=== PATIENT | male | born 1965 | race Caucasian/White ===

== ENCOUNTER → 2019-11-02 | Outpatient (CLI) | payer OTHER ==
--- NOTE | 2019-11-02 11:36 | RAD ---
3 views of the lumbar spine without comparison for right hip and low back pain, no trauma. FINDINGS: There is straightening of the normal lumbar lordosis. No fracture or acute osseous abnormality is identified. Intervertebral disc spaces are well-maintained at all levels. There is some facet arthrosis in the L4-5 and L5-S1 there is. There is aortoiliac atherosclerosis. Total left hip arthroplasty is noted. IMPRESSION: 1. No fracture or acute osseous abnormality. 2. Lower lumbar facet arthrosis, most notable at L5-S1. 3. Aortoiliac atherosclerosis. Electronically signed by: Norberto Coello MD (11/02/2019 11:33 AM) [facility]
--- NOTE | 2019-11-02 17:08 | RAD ---
2 view study of the right hip Clinical indications: Right hip and lower back pain. No known trauma. FINDINGS: No acute fracture or dislocation or lytic process is seen. No significant arthritic change is seen. IMPRESSION: No significant osseous abnormality of the right hip. Electronically signed by: Carlos Viveros MD (11/02/2019 5:05 PM) [facility]
== END | disposition home or self-care (01) ==
LOC: PMG 10:22
PROVIDERS: ATTEND Family Medicine
DX: M47.817 Spondylosis without myelopathy or radiculopathy, lumbosacral region (principal); I70.0 Atherosclerosis of aorta; Z96.642 Presence of left artificial hip joint
CPT/HCPCS: 72100; 73502

== ENCOUNTER 2020-09-07 05:15 | Emergency (ER) | payer OTHER ==
[~2020-09-07] VITALS: Ht 162.6 cm; Wt 75.0 kg
[2020-09-07] MEDS ORDERED: ONDANSETRON PF 4 MG/2 ML VIAL. IVP ONE (05:45)
[2020-09-07] MEDS ORDERED: IV NORMAL SALINE 1,000ML 1,000 ML IV ONE (05:45)
[2020-09-07 05:55] LABS: BASO % 0 % (0-3); EOS % 0 % (0-3); HEMOGLOBIN 15.3 g/dL (13.0-17.5); LYMPH # 0.9 x10^3/uL (1.0-4.8); LYMPH % 10 % (24-48); MEAN CORPUSCULAR HEMOGLOBIN 31 pg (25-35); MEAN CORPUSCULAR HGB CONC 34 g/dL (31-37); MEAN CORPUSCULAR VOLUME 91 fL (79-100); MONO # 0.3 x10^3/uL (0.0-1.1); MONO % 4 % (0-9); NEUT # 7.6 x10^3uL (1.8-7.7); NEUT % 85 % (31-73); PLATELET COUNT 254 x10^3/uL (140-400); RED BLOOD COUNT 4.94 x10^6/uL (4.30-5.70); RED CELL DISTRIBUTION WIDTH 13.4 % (11.5-14.5); WHITE BLOOD COUNT 8.9 x10^3/uL (4.0-11.0)
[2020-09-07 06:01] LABS: CALCIUM 9.5 mg/dL (8.5-10.1); CREATININE 1.1 mg/dL (0.7-1.3); POTASSIUM 4.6 mmol/L (3.5-5.1)
--- NOTE | 2020-09-07 06:02 | PHYS DOC ---
Past History Past Medical History: Cancer, Hypertension, Hypothyroid Additional Past Medical Histor: Throat cancer (BARB ADORNO DO) Past Surgical History: Appendectomy, Hip Replacement, Knee Replacement (BARB ADORNO DO) Smoking: Quit Greater Than 1 Year Alcohol Use: None Drug Use: None (BARB ADORNO DO) General Adult EDM: Chief Complaint: ABDOMINAL PAIN HPI: HPI: 55-year-old male presents with report of upper abdominal discomfort with associated nausea and vomiting that started this morning upon waking at approximately 0100 this morning. Denies diarrhea. Patient denies known sick contacts. Denies fever or chills. Denies chest pain or shortness of breath. Denies trauma. Denies known exposure to COVID-19. (BARB ADORNO DO) Review of Systems: Review of Systems: Constitutional: Denies fever or chills Eyes: Denies redness or eye pain HENT: Denies nasal congestion or sore throat Respiratory: Denies cough or shortness of breath Cardiovascular: Denies chest pain or palpitations GI: Reports upper abdominal pain, nausea, and vomiting : Denies dysuria or hematuria Musculoskeletal: Denies back pain or joint pain Integument: Denies rash or skin lesions Neurologic: Denies headache, focal weakness or sensory changes Complete systems were reviewed and found to be within normal limits, except as documented in this note. (BARB ADORNO DO) Current Medications: Current Meds: Current Medications Medications (Trade) Dose Ordered Sig/Buffy Start Time Stop Time Status Last Admin Dose Admin Famotidine (Pepcid Vial) 20 mg 1X ONCE 09/07/20 06:30 09/07/20 06:31 Ketorolac Tromethamine (Toradol 15mg Vial) 15 mg 1X ONCE 09/07/20 06:30 09/07/20 06:31 Ondansetron HCl (Zofran) 4 mg 1X ONCE 09/07/20 05:45 09/07/20 05:46 DC 09/07/20 05:38 4 MG Sodium Chloride 1,000 ml @ 1,000 mls/hr 1X ONCE 09/07/20 05:45 09/07/20 06:44 09/07/20 05:38 1,000 MLS/HR (BARB ADORNO DO) Allergies: Allergies: Allergies Coded Allergies Type Severity Reaction Last Updated Verified No Known Drug Allergies 09/07/20 No (BARB ADORNO DO) Physical Exam: PE: Constitutional: Well developed, well nourished, no acute distress, non-toxic appearance HENT: Normocephalic, atraumatic Eyes: Conjunctiva normal, no discharge Neck: Normal range of motion, no tenderness, supple Lungs & Thorax: No respiratory distress, equal chest rise and fall Abdomen: Soft, epigastric tenderness, no rebound tenderness Skin: Warm, dry, no erythema, no rash Back: No tenderness, no CVA tenderness Extremities: No tenderness, ROM intact, no edema Neurologic: Alert and oriented X 3, no focal deficits noted Psychologic: Affect normal, judgment normal (BARB ADORNO DO) Current Patient Data: Labs: Laboratory Tests Test 09/07/20 05:30 White Blood Count 8.9 x10^3/uL (4.0-11.0) Red Blood Count 4.94 x10^6/uL (4.30-5.70) Hemoglobin 15.3 g/dL (13.0-17.5) Hematocrit 45.0 % (39.0-53.0) Mean Corpuscular Volume 91 fL (79-100) Mean Corpuscular Hemoglobin 31 pg (25-35) Mean Corpuscular Hemoglobin Concent 34 g/dL (31-37) Red Cell Distribution Width 13.4 % (11.5-14.5) Platelet Count 254 x10^3/uL (140-400) Neutrophils (%) (Auto) 85 % (31-73) H Lymphocytes (%) (Auto) 10 % (24-48) L Monocytes (%) (Auto) 4 % (0-9) Eosinophils (%) (Auto) 0 % (0-3) Basophils (%) (Auto) 0 % (0-3) Neutrophils # (Auto) 7.6 x10^3uL (1.8-7.7) Lymphocytes # (Auto) 0.9 x10^3/uL (1.0-4.8) L Monocytes # (Auto) 0.3 x10^3/uL (0.0-1.1) Eosinophils # (Auto) 0.0 x10^3/uL (0.0-0.7) Basophils # (Auto) 0.0 x10^3/uL (0.0-0.2) Vital Signs: Vital Signs Date Time Temp Pulse Resp B/P (MAP) Pulse Ox O2 Delivery O2 Flow Rate FiO2 09/07/20 05:15 97.5 62 18 155/82 (106) 98 (BARB ADORNO DO) EKG: EKG: @0557 Sinus bradycardia at 55bpm, NO ST elevation, RBBB, QRS 124ms, QT/QTc 458/440ms (BARB ADORNO DO) Radiology/Procedures: Radiology/Procedures: [] (BARB ADORNO DO) Course & Med Decision Making: Course & Med Decision Making Pertinent Labs and Imaging studies reviewed. (See chart for details) Patient presents with report of sudden upper abdominal discomfort with associated nausea and vomiting. Tenderness appreciated to epigastric region. Symptomatic treatment provided. IV fluid hydration given. Labs obtained and pending. EKG stable. CT abdomen/pelvis also pending. Signout given to Dr. Rogel for further evaluation and final disposition. Discussed current findings and plan with patient, who acknowledges understanding and agreement. (BARB ADORNO DO) Course & Med Decision Making Assumed care of patient from Dr. Adorno at checkout. At checkout abdominal labs and CT abdomen pelvis was pending. CT abdomen pelvis showed some gallbladder distention with recommendation for ultrasound. Ultrasound was done and shows gallbladder distention with some biliary stones. No definitive signs of cholecystitis at this time. Liver enzymes are normal. White blood cell count is normal. I did offer the patient transfer to [place] to be evaluated by a surgeon versus outpatient surgery appointment. Patient would like to follow-up outpatient. He is feeling significantly better. He will return to the emergency room if his symptoms recur. Patient's test results and vitals while in the ED were fully reviewed and discussed with the patient. Patient is stable and at this time does not need admission to the hospital. We have discussed strict return precautions and the importance of following up with their Primary Care Physician. Patient stated understanding and was given an opportunity to ask any questions. Patient is in agreement with plan. (ERENDIRA ROGEL MD) Jeanette Disclaimer: Jeanette Disclaimer: This electronic medical record was generated, in whole or in part, using a voice recognition dictation system. (BARB ADORNO DO) Departure Departure: Impression: Primary Impression: Abdominal pain Qualified Codes: R10.13 - Epigastric pain Additional Impression: Biliary colic Disposition: 01 DC HOME SELF CARE/HOMELESS Condition: STABLE Referrals: ONI MACDONALD MD (PCP) SMITA CREWS MD Patient Instructions: Biliary Colic Scripts Ondansetron Hcl (ZOFRAN) 4 Mg Tablet 1 TAB PO PRN Q6HRS PRN for NAUSEA, #10 TAB Prov: ERENDIRA ROGEL MD 09/07/20 Tramadol Hcl (TRAMADOL HCL) 50 Mg Tablet 50 MG PO PRN Q6HRS PRN for PAIN, #12 TAB Prov: ERENDIRA ROGEL MD 09/07/20 BARB ADORNO DO Sep 07, 2020 06:02 ERENDIRA ROGEL MD Sep 07, 2020 08:36
[2020-09-07 06:07] LABS: ALBUMIN 4.2 g/dL (3.4-5.0); ALBUMIN/GLOBULIN RATIO 1.4 (1.0-1.7); TOTAL BILIRUBIN 0.6 mg/dL (0.2-1.0); TOTAL PROTEIN 7.3 g/dL (6.4-8.2)
[2020-09-07] MEDS ORDERED: CONTRAST GIVEN. MC PRN (06:15)
--- NOTE | 2020-09-07 06:25 | EKG ---
[address] [address] Test Date: 2020-09-07 Test Time: 05:57:19 Pat Name: BARB GRIDERN Department: Room: Gender: M Senior It Specialist: HAMILTON : 1965 Requested By: BARB ADORNO Order Number: [id number] Reading MD: Measurements Intervals [place] Rate: 55 P: 59 TX: 154 QRS: 70 QRSD: 124 T: 39 QT: 458 QTc: 440 Interpretive Statements SINUS RHYTHM RIGHT BUNDLE BRANCH BLOCK ABNORMAL ECG RI6.02 No previous ECG available for comparison
[2020-09-07] MEDS ORDERED: IOHEXOL 300 MG/ML 75 ML VIAL. IV ONE (06:30)
[2020-09-07] MEDS ORDERED: FAMOTIDINE 20 MG/2 ML VIAL IVP ONE (06:30)
[2020-09-07] MEDS ORDERED: KETOROLAC 15 MG/ML VIAL. IVP ONE (06:30)
--- NOTE | 2020-09-07 07:19 | RAD ---
EXAMINATION: CT ABD PELV W/ IV CONTRST ONLY (CT ABDOMEN/PELVIS WITH IV CONTRAST) CLINICAL HISTORY: Upper abdomen/epigastric pain, vomiting TECHNIQUE: CT of the abdomen and pelvis was performed using standard technique, scanning from just above the dome of the diaphragm to the symphysis pubis following administration of intravenous contrast. CT Dose Reduction Employed: One or more of the following individualized dose reduction techniques were utilized for this examination: 1. Automated exposure control 2. Adjustment of the mA and/or kV according to patient size 3. Use of iterative reconstruction technique. COMPARISON: None FINDINGS: Minimal left basilar curvilinear subsegmental atelectasis and/or scarring. Mildly distended gallbladder with 1.4 cm noncalcified stone in the region of the gallbladder neck. No pericholecystic fluid or significant pericholecystic inflammation. No intrahepatic or extrahepatic biliary ductal dilation. Liver, pancreas, spleen, adrenal glands, and kidneys unremarkable. Mildly filled urinary bladder with slight diffusely thickened ramirez. No significant perivesical inflammation. No dilated bowel. Submucosal fat deposition within the transverse, descending, and sigmoid colon, suggestive of chronic colitis. Appendectomy. Arterial atherosclerotic calcification without aneurysm. Multiple prominent but nonenlarged mesenteric and retroperitoneal lymph nodes, likely reactive. Multilevel thoracolumbar degenerative changes. Partially visualized left hip arthroplasty with posterior acetabular screw. IMPRESSION: Mildly distended gallbladder with noncalcified stone in the gallbladder neck. Correlate for cholecystitis and consider right upper quadrant ultrasound for further evaluation as indicated. Findings compatible with chronic colitis. Electronically signed by: Yaron Long DO (09/07/2020 7:16 AM) [facility] [place]
--- NOTE | 2020-09-07 08:11 | RAD ---
INDICATION : Reason: abd pain, gallbladder / Spl. Instructions: / History: COMPARISON: None TECHNIQUE: Multiple ultrasound images obtained through the abdomen in grayscale and color. FINDINGS: Liver: Echogenic with some portions not well seen secondary to poor beam penetration Gallbladder: Distended with 13 mm echogenic focus within the neck. The gallbladder measures up to 11 cm. Wall 3 mm. IVC: Partially distended at level of liver. Common Bile Duct: Not dilated. Pancreas: Not well seen secondary to overlying structures obscuring. Right Kidney: No hydronephrosis. IMPRESSION: * Dilated gallbladder. Would correlate with symptoms since hydrops can have this appearance. There is also borderline thickness of the gallbladder wall and gallstones. Given these findings if further evaluation for cholecystitis is desired nuclear hepatic biliary scan could further assess Electronically signed by: Vik Vo MD (09/07/2020 8:08 AM) [id number]
[2020-09-07] MEDS ORDERED: TRAM50TA PO (08:35)
[2020-09-07] MEDS ORDERED: ONDA4TAB7 PO (08:35)
[2020-09-07 09:15] VITALS: BP 161/81
== END 2020-09-07 09:15 | disposition home or self-care (01) ==
LOC: ER 05:15
DX: K80.50 Calculus of bile duct without cholangitis or cholecystitis without obstruction (principal); R11.2 Nausea with vomiting, unspecified; I10 Essential (primary) hypertension; E03.9 Hypothyroidism, unspecified; Z90.89 Acquired absence of other organs; Z87.891 Personal history of nicotine dependence
CPT/HCPCS: 36415; 74177; 76705; 80053; 82553; 83690; 83735; 84484; 85025; 93005; 96361; 96374; 96375; 99285; J1885; J2405; J3490; J7030; Q9967

== ENCOUNTER → 2021-06-16 | Outpatient (CLI) | payer OTHER ==
[~2021-06-16] MED LIST: ONDA4TAB7 PO; TRAM50TA PO
--- NOTE | 2021-06-16 13:39 | RAD ---
Right humerus 2 views. HISTORY: Arm pain, finger numbness 2 views were taken of the right humerus. There is not evidence of an acute fracture or osseous abnorm ality. There is no dislocation at the shoulder. IMPRESSION: 1. Negative right humerus. Electronically signed by: Will Donis MD (06/16/2021 1:37 PM) [facility]
== END ==
LOC: RAD 13:09
PROVIDERS: ATTEND Nurse Practitioner Family
DX: M79.601 Pain in right arm (principal)
CPT/HCPCS: 73060